=== PATIENT | female | born 1980 | race Caucasian/White ===

== ENCOUNTER 2020-09-09 11:02 | Emergency (ER) | payer OTHER, SELFPAY ==
[2020-09-09] MEDS ORDERED: Magnesium 2 GM/50 ML BAG (IN WATER) ONE (12:00)
[2020-09-09] MEDS ORDERED: Ketorolac Tromethamine 30 MG/ML VIAL ONE (12:23)
[2020-09-09] MEDS ORDERED: Metoclopramide HCl 10 MG/2 ML VIAL ONE (12:23)
== END 2020-09-09 13:30 | disposition home or self-care (01) ==
LOC: BURERS 11:02
DX: G43.009 Migraine without aura, not intractable, without status migrainosus (principal); Z87.891 Personal history of nicotine dependence
CPT/HCPCS: 96374; 96375; J1885; J2765; J3475